=== PATIENT | male | born 1960 | race African-American/Black ===

== ENCOUNTER 2024-06-02 15:06 | Inpatient (IN) | payer MEDICAID ==
[~2024-06-02] VITALS: Ht 182.9 cm; Wt 84.2 kg
[2024-06-02] MEDS: SODIUM CHLORIDE 0.9% 1,000 ML IV ONE ×2 (15:15→19:18)
[2024-06-02 16:09] LABS: BG CARBOXYHEMOGLOBIN 0.3 % (0.5-1.5); BG DEOXYHEMOGLOBIN 1.8 % (0.0-5.0); BG FRACTION INSPIRED OXYGEN 32; BG HCO3 ACT 3.1 mmol/L (21.0-28.0); BG METHEMOGLOBIN 0.3 % (0.5-1.5); BG OXYGEN SATURATION 98.2 % (94.0-98.0); BG OXYHEMOGLOBIN 97.6 % (94.0-98.0); BG PCO2 12.2 mmHg (35.0-48.0); BG PH 7.016 (7.350-7.450); BG PO2 140.6 mmHg (83.0-108.0); BG SAMPLE SITE RIGHT BRACHIAL; BG VENT MODE NASAL CANNULA
[2024-06-02] MEDS ORDERED: INSULIN REGULAR (DRIP) 100 UNITS in SODIUM CHLORIDE 0.9% 99 ML IV SCH (16:15)
[2024-06-02 19:31] LABS: HEMATOCRIT. 47.5 % (42.0-52.0); HEMOGLOBIN. 13.6 g/dL (14.0-18.0); MEAN CORPUSCULAR HEMOGLOBIN 29.3 pg (28.0-32.0); MEAN CORPUSCULAR HGB CONC 28.6 g/dL (31.0-37.0); MEAN CORPUSCULAR VOLUME 102.4 fL (80.0-94.0); MEAN PLATELET VOLUME 9.6 fl (7.4-10.4); PLATELET 235 x1000/uL (130-400); RED BLOOD CELL COUNT 4.64 mill/uL (4.7-6.1); RED CELL DISTRIBUTION WIDTH 14.9 % (11.6-14.6); WHITE BLOOD COUNT 16.7 x1000/uL (4.5-11.0)
[2024-06-02 19:33] LABS: DIFFERENTIAL COMMENT 1
[2024-06-02 19:33] LABS: *AMPHETAMINES SCREEN URINE NEGATIVE (NEGATIVE); *BARBITURATES SCREEN URINE NEGATIVE (NEGATIVE); *BENZODIAZEPINES SCREEN URINE NEGATIVE (NEGATIVE); *COCAINE SCREEN URINE PRESUMPTIVE POSITIVE (NEGATIVE); CANNABINOID URINE SCREEN NEGATIVE (NEGATIVE); ECSTASY MDMA SCREEN URINE NEGATIVE (NEGATIVE); METHADONE URINE SCREEN NEGATIVE (NEGATIVE); OPIATES URINE SCREEN NEGATIVE (NEGATIVE); PHENCYCLIDINE URINE SCREEN NEGATIVE (NEGATIVE)
[2024-06-02 19:37] LABS: GLUCOSE URINE 3+ (NEGATIVE); KETONES URINE 3+ (NEGATIVE)
[2024-06-02 19:38] LABS: CHLORIDE 109 mEq/L (98-107); POTASSIUM 3.9 mEq/L (3.5-5.1); SODIUM 146 mEq/L (136-145)
[2024-06-02 19:44] LABS: CREATININE 2.6 mg/dL (0.6-1.3)
[2024-06-02 19:45] LABS: TROPONIN I HIGH SENSITIVITY 39 ng/L (3.0-53); UREA NITROGEN BLOOD 61 mg/dL (9-23)
[2024-06-02 19:49] LABS: ETHANOL BLOOD < 10 mg/dL (<10)
[2024-06-02 19:54] LABS: CALCIUM 9.8 mg/dL (8.7-10.4)
[2024-06-02 19:57] LABS: CLARITY URINE CLEAR (CLEAR); COLOR URINE YELLOW (YELLOW)
[2024-06-02 19:58] LABS: CARBON DIOXIDE < 10 mEq/L (21-32); GLUCOSE 957 mg/dL (70-105)
[2024-06-02 19:58] LABS: LEUKOCYTE ESTERASE URINE NEGATIVE (NEGATIVE); NITRITE URINE NEGATIVE (NEGATIVE); OCCULT BLOOD URINE 2+ (NEGATIVE); PROTEIN URINE 1+ (NEGATIVE); UROBILINOGEN URINE 0.2 E.U./dL (0.2-1.0)
[2024-06-02 19:59] LABS: BACTERIA URINE 1+; SQUAMOUS EPITHELIAL CELL URINE RARE /lpf (RARE/1+)
[2024-06-02 19:59] LABS: BETA HYDROXYBUTYRATE 13.1 mMol/L (0.0-0.3)
[2024-06-02 20:00] LABS: WBC URINE 0-2 /hpf (0-2)
[2024-06-02] MEDS: MIDAZOLAM HCL 2 MG/2 ML VIAL IV ONE (20:15)
[2024-06-02] MEDS ORDERED: MIDAZOLAM HCL 100 MG in DEXT 5% WATER 80 ML IV ONE (20:15)
[2024-06-02 20:17] VITALS: PULSE 74; RESP 29; O2SAT 100
[2024-06-02] MEDS: INSULIN REGULAR 100U/100ML PMX 100 ML IV SCH (20:17)
[2024-06-02] MEDS: SUCCINYLCHOLINE CHLORIDE 200MG/10ML IV ONE (20:18)
[2024-06-02] MEDS: ETOMIDATE 2MG/ML 10ML VIAL IV ONE (20:18)
[2024-06-02] MEDS: MIDAZOLAM 100MG/100ML PMX 100 ML IV NR (20:44)
[2024-06-02 20:49] LABS: PLATELET ESTIMATE NORMAL
[2024-06-02 20:50] LABS: ANISOCYTOSIS 1+
[2024-06-02] MEDS ORDERED: SODIUM PHOSPHATE 15 MMOL in SODIUM CHLORIDE 0.9% 245 ML IV PRN (23:00)
[2024-06-02] MEDS ORDERED: MAGNESIUM 2 G PREMIX 50 ML IV PRN (23:00)
[2024-06-02] MEDS ORDERED: POTASSIUM CHLORIDE 40 MEQ in SODIUM CHLORIDE 0.9% 230 ML IV PRN (23:00)
[2024-06-02] MEDS ORDERED: BLOOD SUGAR DIAGNOSTIC STRIP TEST PRN (23:00)
[2024-06-02] MEDS ORDERED: KCL 20MEQ/100ML PREMIX 100 ML IV PRN (23:00)
[2024-06-02] MEDS ORDERED: DEXTROSE 50% WATER 50ML SYRINGE IV PRN (23:00)
[2024-06-03] VITALS (7 sets, daily range): PULSE 80–113; RESP 20–26; O2SAT 100
[2024-06-03 00:56] LABS: BG BASE EXCESS -25.6 mmol/L (-2.0-3.0); BG CARBOXYHEMOGLOBIN 0.2 % (0.5-1.5); BG DEOXYHEMOGLOBIN 0.5 % (0.0-5.0); BG FRACTION INSPIRED OXYGEN 40; BG HCO3 ACT 4.6 mmol/L (21.0-28.0); BG METHEMOGLOBIN 0.3 % (0.5-1.5); BG OXYGEN SATURATION 99.5 % (94.0-98.0); BG PCO2 20.1 mmHg (35.0-48.0); BG PH 6.979 (7.350-7.450); BG PO2 208.1 mmHg (83.0-108.0); BG SAMPLE SITE RIGHT RADIAL; BG TOTAL HEMOGLOBIN 14.1 g/dL (13.5-17.5); BG VENT MODE VENT - AC
[2024-06-03] MEDS: BLOOD SUGAR DIAGNOSTIC STRIP TEST SCH (01:00)
[2024-06-03 02:16] LABS: CHLORIDE 116 mEq/L (98-107); SODIUM 150 mEq/L (136-145)
[2024-06-03 02:21] LABS: CREATININE 2.5 mg/dL (0.6-1.3)
[2024-06-03 02:22] LABS: UREA NITROGEN BLOOD 57 mg/dL (9-23)
[2024-06-03 02:24] LABS: PHOSPHORUS 3.4 mg/dL (2.5-4.9)
[2024-06-03 03:26] LABS: CARBON DIOXIDE < 10 mEq/L (21-32); GLUCOSE 666 mg/dL (70-105)
[2024-06-03] MEDS: SODIUM CHLORIDE 0.9% 1,000 ML IV SCH (04:54)
[2024-06-03] MEDS: DEXT 5%/0.9% NACL 1,000 ML IV SCH (05:57)
[2024-06-03 11:14] LABS: BG BASE EXCESS -11.9 mmol/L (-2.0-3.0); BG CARBOXYHEMOGLOBIN 0.8 % (0.5-1.5); BG DEOXYHEMOGLOBIN 0.5 % (0.0-5.0); BG FRACTION INSPIRED OXYGEN 40; BG HCO3 ACT 13.7 mmol/L (21.0-28.0); BG METHEMOGLOBIN 0.3 % (0.5-1.5); BG OXYGEN SATURATION 99.5 % (94.0-98.0); BG OXYHEMOGLOBIN 98.4 % (94.0-98.0); BG PCO2 30.7 mmHg (35.0-48.0); BG PH 7.266 (7.350-7.450); BG PO2 218.4 mmHg (83.0-108.0); BG SAMPLE SITE RIGHT RADIAL; BG VENT MODE VENT - AC
[2024-06-03 14:47] LABS: CHLORIDE 129 mEq/L (98-107)
[2024-06-03 14:48] LABS: CALCIUM 10.1 mg/dL (8.7-10.4); CARBON DIOXIDE 20 mEq/L (21-32)
[2024-06-03 14:53] LABS: CREATININE 2.7 mg/dL (0.6-1.3); UREA NITROGEN BLOOD 73 mg/dL (9-23)
[2024-06-03 15:40] LABS: SODIUM 162 mEq/L (136-145)
[2024-06-03 15:41] LABS: GLUCOSE 124 mg/dL (70-105); PHOSPHORUS 0.4 mg/dL (2.5-4.9); POTASSIUM 2.8 mEq/L (3.5-5.1)
[2024-06-03] MEDS: MIDAZOLAM 100MG/100ML PMX 100 ML IV PRN (15:59)
[2024-06-03] MEDS: KCL 20MEQ/100ML PREMIX 100 ML IV NR (18:40)
[2024-06-03] MEDS: POTASSIUM PHOSPHATE 30 MMOL in SODIUM CHLORIDE 0.9% 490 ML IV NR (19:12)
[2024-06-03] MEDS: FENTANYL CITRATE/PF 50MCG/ML 2ML VIAL IV PRN (21:44)
[2024-06-03] MEDS: DEXT 5%/0.45% NACL 1000ML 1,000 ML IV ONE (22:04)
[2024-06-03] MEDS: POTASSIUM PHOSPHATE 20 MMOL in SODIUM CHLORIDE 0.9% 243.3333 ML IV NR (23:59)
[2024-06-04] VITALS (80 sets, daily range): BP systolic 109–153; BP diastolic 73–97; PULSE 96–113; RESP 15–32; TEMP 36.44736–37.00296; O2SAT 91–100
[2024-06-04] MEDS: MIDAZOLAM 100MG/100ML PMX 100 ML IV PRN (00:52)
[2024-06-04 01:04] LABS: CHLORIDE 130 mEq/L (98-107); POTASSIUM 4.6 mEq/L (3.5-5.1)
[2024-06-04 01:05] LABS: CARBON DIOXIDE 15 mEq/L (21-32)
[2024-06-04 01:06] LABS: CALCIUM 8.8 mg/dL (8.7-10.4)
[2024-06-04 01:10] LABS: CREATININE 3.3 mg/dL (0.6-1.3)
[2024-06-04 01:11] LABS: UREA NITROGEN BLOOD 78 mg/dL (9-23)
[2024-06-04 01:13] LABS: PHOSPHORUS 2.3 mg/dL (2.5-4.9)
[2024-06-04 01:15] LABS: GLUCOSE 301 mg/dL (70-105)
[2024-06-04 01:16] LABS: SODIUM 160 mEq/L (136-145)
[2024-06-04] MEDS ORDERED: POTASSIUM CHLORIDE 40 MEQ in DEXTROSE 5% WATER 1,000 ML IV SCH (01:30)
[2024-06-04 05:57] LABS: CHLORIDE 132 mEq/L (98-107); POTASSIUM 4.3 mEq/L (3.5-5.1)
[2024-06-04 05:58] LABS: CALCIUM 8.9 mg/dL (8.7-10.4); CARBON DIOXIDE 16 mEq/L (21-32)
[2024-06-04 06:03] LABS: CREATININE 3.7 mg/dL (0.6-1.3); UREA NITROGEN BLOOD 86 mg/dL (9-23)
[2024-06-04 06:04] LABS: HEMATOCRIT. 40.2 % (42.0-52.0); HEMOGLOBIN. 12.6 g/dL (14.0-18.0); MEAN CORPUSCULAR HEMOGLOBIN 29.2 pg (28.0-32.0); MEAN CORPUSCULAR HGB CONC 31.2 g/dL (31.0-37.0); MEAN CORPUSCULAR VOLUME 93.3 fL (80.0-94.0); MEAN PLATELET VOLUME 8.7 fl (7.4-10.4); PLATELET 113 x1000/uL (130-400); RED BLOOD CELL COUNT 4.31 mill/uL (4.7-6.1); RED CELL DISTRIBUTION WIDTH 13.6 % (11.6-14.6); WHITE BLOOD COUNT 15.3 x1000/uL (4.5-11.0)
[2024-06-04 06:06] LABS: PHOSPHORUS 1.9 mg/dL (2.5-4.9)
[2024-06-04] MEDS: DEXT 5%/0.45% NACL 1000ML 1,000 ML IV SCH (06:24)
[2024-06-04 06:32] LABS: GLUCOSE 137 mg/dL (70-105)
[2024-06-04 06:33] LABS: SODIUM 164 mEq/L (136-145)
[2024-06-04] MEDS: KCL 20MEQ/100ML PREMIX 100 ML IV NR (07:52)
[2024-06-04 09:21] LABS: DIFFERENTIAL COMMENT 1
[2024-06-04] MEDS ORDERED: DEXTROSE 5% WATER 1,000 ML IV SCH (09:30)
[2024-06-04] MEDS ORDERED: DEXT 5%/0.9% NACL 1,000 ML IV SCH (09:45)
[2024-06-04] MEDS ORDERED: KCL 20MEQ/100ML PREMIX 100 ML IV PRN (09:45)
[2024-06-04] MEDS ORDERED: POTASSIUM CHLORIDE 40 MEQ in SODIUM CHLORIDE 0.9% 230 ML IV PRN (09:45)
[2024-06-04] MEDS ORDERED: BLOOD SUGAR DIAGNOSTIC STRIP TEST PRN (09:45)
[2024-06-04] MEDS ORDERED: SODIUM PHOSPHATE 15 MMOL in SODIUM CHLORIDE 0.9% 245 ML IV PRN (09:45)
[2024-06-04] MEDS ORDERED: DEXTROSE 50% WATER 50ML SYRINGE IV PRN (09:45)
[2024-06-04] MEDS: SODIUM CHLORIDE 0.9% 1,000 ML IV SCH (09:55)
[2024-06-04] MEDS: BLOOD SUGAR DIAGNOSTIC STRIP TEST SCH (09:55)
[2024-06-04] MEDS ORDERED: POTASSIUM PHOSPHATE 30 MMOL in SODIUM CHLORIDE 0.9% 490 ML IV NR (10:30)
[2024-06-04 10:33] LABS: BG BASE EXCESS -12.5 mmol/L (-2.0-3.0); BG CARBOXYHEMOGLOBIN 0.8 % (0.5-1.5); BG DEOXYHEMOGLOBIN 0.7 % (0.0-5.0); BG FRACTION INSPIRED OXYGEN 40; BG HCO3 ACT 13.6 mmol/L (21.0-28.0); BG OXYGEN SATURATION 99.3 % (94.0-98.0); BG OXYHEMOGLOBIN 98.5 % (94.0-98.0); BG PCO2 32.1 mmHg (35.0-48.0); BG PH 7.246 (7.350-7.450); BG PO2 205.3 mmHg (83.0-108.0); BG SAMPLE SITE RIGHT RADIAL; BG TOTAL HEMOGLOBIN 11.6 g/dL (13.5-17.5); BG VENT MODE VENT - AC
[2024-06-04] MEDS: SODIUM BICARBONATE 8.4% 50MEQ/50ML SYR IV NR (11:05)
[2024-06-04] MEDS: INSULIN REGULAR 100U/100ML PMX 100 ML IV SCH (11:08)
[2024-06-04] MEDS ORDERED: INSULIN REGULAR 100U/100ML PMX 100 ML IV SCH (11:43)
[2024-06-04] MEDS: WATER IV SCH (11:56)
[2024-06-04] MEDS: DEXTROSE 5% IV SCH (11:56)
[2024-06-04] MEDS: POTASSIUM PHOSPHATE 15 MMOL in DEXT 5% WATER 245 ML IV NR ×2 (12:10→16:52)
[2024-06-04] MEDS: DEXT 5%/LACTATED RINGERS 1,000 ML IV SCH (14:31)
[2024-06-04 17:37] LABS: POTASSIUM 4.2 mEq/L (3.5-5.1)
[2024-06-04 17:38] LABS: CALCIUM 8.4 mg/dL (8.7-10.4)
[2024-06-04 17:43] LABS: CREATININE 4.4 mg/dL (0.6-1.3)
[2024-06-04] MEDS: IPRATROPIUM/ALBUTEROL 0.5-3(2.5)MG/3ML NEB HHN SCH (20:14)
[2024-06-04 22:14] LABS: PLATELET ESTIMATE DECREASED
[2024-06-04 23:21] LABS: POTASSIUM 4.3 mEq/L (3.5-5.1)
[2024-06-04 23:23] LABS: CALCIUM 8.2 mg/dL (8.7-10.4)
[2024-06-04 23:30] LABS: PHOSPHORUS 1.9 mg/dL (2.5-4.9)
[2024-06-05] VITALS (90 sets, daily range): BP systolic 86–144; BP diastolic 60–91; PULSE 100–120; RESP 22–51; TEMP 36.114–38.00304; O2SAT 86–100
[2024-06-05 06:09] LABS: CARBON DIOXIDE 15 mEq/L (21-32); CHLORIDE 129 mEq/L (98-107); POTASSIUM 3.8 mEq/L (3.5-5.1)
[2024-06-05 06:11] LABS: CALCIUM 8.5 mg/dL (8.7-10.4)
[2024-06-05 06:15] LABS: GLUCOSE 350 mg/dL (70-105); UREA NITROGEN BLOOD 96 mg/dL (9-23)
[2024-06-05 07:35] LABS: CREATININE 5.5 mg/dL (0.6-1.3); PHOSPHORUS 0.9 mg/dL (2.5-4.9); SODIUM 159 mEq/L (136-145)
[2024-06-05] MEDS: INSULIN REGULAR 100U/100ML PMX 100 ML IV SCH (08:24)
[2024-06-05] MEDS: PROPOFOL 10MG/ML 100ML 100 ML IV PRN (10:34)
[2024-06-05 11:07] LABS: CALCIUM 8.6 mg/dL (8.7-10.4)
[2024-06-05 11:13] LABS: BG BASE EXCESS -9.9 mmol/L (-2.0-3.0); BG CARBOXYHEMOGLOBIN 0.3 % (0.5-1.5); BG DEOXYHEMOGLOBIN 3.5 % (0.0-5.0); BG FRACTION INSPIRED OXYGEN 40; BG METHEMOGLOBIN 0.2 % (0.5-1.5); BG OXYGEN SATURATION 96.5 % (94.0-98.0); BG PCO2 24.9 mmHg (35.0-48.0); BG PH 7.368 (7.350-7.450); BG PO2 80.7 mmHg (83.0-108.0); BG SAMPLE SITE ALINE; BG TOTAL HEMOGLOBIN 10.2 g/dL (13.5-17.5); BG VENT MODE VENT - AC
[2024-06-05 11:27] LABS: CREATININE 5.9 mg/dL (0.6-1.3)
[2024-06-05] MEDS: POTASSIUM PHOSPHATE 30 MMOL in SODIUM CHLORIDE 0.9% 490 ML IV NR (11:49)
[2024-06-05 13:27] LABS: CREATINE KINASE 1134 IU/L (46-171)
[2024-06-05 13:42] LABS: HEPATITIS B SURFACE ANTIGEN NEGATIVE (Negative)
[2024-06-05 13:58] LABS: HIV 1/2 AB P24AG Negative (Negative)
[2024-06-05 14:03] LABS: HEPATITIS A AB IGM NEGATIVE (Negative); HEPATITIS B CORE AB IGM NEGATIVE (Negative)
[2024-06-05 14:04] LABS: HEPATITIS C AB NON REACTIVE (Neg) (Negative)
[2024-06-05] MEDS: PANTOPRAZOLE SODIUM 40 MG/VIAL IV SCH (15:15)
[2024-06-05] MEDS: ENOXAPARIN 30MG/0.3ML SYR SUBCUT SCH (18:22)
[2024-06-05] MEDS ORDERED: ACETAMINOPHEN 650MG/20.3ML UDC PO NR (19:00)
[2024-06-05] MEDS ORDERED: ACETAMINOPHEN 650MG/20.3ML UDC PO PRN (22:30)
[2024-06-05 22:57] LABS: CHLORIDE 126 mEq/L (98-107); POTASSIUM 4.8 mEq/L (3.5-5.1)
[2024-06-05 22:58] LABS: CALCIUM 8.1 mg/dL (8.7-10.4); CARBON DIOXIDE 14 mEq/L (21-32)
[2024-06-05 23:03] LABS: GLUCOSE 333 mg/dL (70-105); UREA NITROGEN BLOOD 94 mg/dL (9-23)
[2024-06-05 23:05] LABS: PHOSPHORUS 3.1 mg/dL (2.5-4.9)
[2024-06-05 23:07] LABS: CREATININE 6.7 mg/dL (0.6-1.3); SODIUM 156 mEq/L (136-145)
[2024-06-05] MEDS: MAGNESIUM 2 G PREMIX 50 ML IV PRN (23:44)
[2024-06-05] MEDS: FENTANYL 2500MCG/250ML PMX 250 ML IV PRN (23:54)
[2024-06-06] VITALS (106 sets, daily range): BP systolic 69–134; BP diastolic 50–103; PULSE 95–126; RESP 13–43; TEMP 37.2252–37.72524; O2SAT 75–100
[2024-06-06 02:51] LABS: HEMATOCRIT 27.7 % (42.0-52.0); HEMOGLOBIN 8.9 g/dL (14.0-18.0); MEAN CORPUSCULAR HEMOGLOBIN 29.8 pg (28.0-32.0); MEAN CORPUSCULAR HGB CONC 32.1 g/dL (31.0-37.0); MEAN CORPUSCULAR VOLUME 92.8 fL (80.0-94.0); PLATELET 75 x1000/uL (130-400); RED BLOOD CELL COUNT 2.98 mill/uL (4.7-6.1); RED CELL DISTRIBUTION WIDTH 14.2 % (11.6-14.6)
[2024-06-06 02:55] LABS: CHLORIDE 130 mEq/L (98-107)
[2024-06-06 02:56] LABS: CARBON DIOXIDE 16 mEq/L (21-32); POTASSIUM 4.6 mEq/L (3.5-5.1)
[2024-06-06 02:57] LABS: CALCIUM 7.9 mg/dL (8.7-10.4)
[2024-06-06 03:01] LABS: GLUCOSE 188 mg/dL (70-105)
[2024-06-06 03:04] LABS: PHOSPHORUS 3.4 mg/dL (2.5-4.9)
[2024-06-06 03:40] LABS: SODIUM 160 mEq/L (136-145)
[2024-06-06 03:41] LABS: CREATININE 6.9 mg/dL (0.6-1.3); UREA NITROGEN BLOOD 111 mg/dL (9-23)
[2024-06-06] MEDS: PHENYLEPHRINE 50MG/250ML PMX 250 ML IV PRN (05:50)
[2024-06-06 06:44] LABS: POTASSIUM 4.8 mEq/L (3.5-5.1)
[2024-06-06 06:45] LABS: CALCIUM 7.7 mg/dL (8.7-10.4)
[2024-06-06 07:12] LABS: CREATININE 6.9 mg/dL (0.6-1.3)
[2024-06-06 07:54] LABS: PHOSPHORUS 3.2 mg/dL (2.5-4.9)
[2024-06-06 11:18] LABS: BG BASE EXCESS -14.2 mmol/L (-2.0-3.0); BG CARBOXYHEMOGLOBIN 1.2 % (0.5-1.5); BG DEOXYHEMOGLOBIN 10.8 % (0.0-5.0); BG FRACTION INSPIRED OXYGEN 60; BG HCO3 ACT 12.8 mmol/L (21.0-28.0); BG METHEMOGLOBIN 1.4 % (0.5-1.5); BG OXYGEN SATURATION 88.9 % (94.0-98.0); BG OXYHEMOGLOBIN 86.6 % (94.0-98.0); BG PCO2 34.4 mmHg (35.0-48.0); BG PO2 57.3 mmHg (83.0-108.0); BG SAMPLE SITE RIGHT RADIAL; BG TOTAL HEMOGLOBIN 8.8 g/dL (13.5-17.5); BG VENT MODE VENT - AC
[2024-06-06 11:48] LABS: CARBON DIOXIDE 16 mEq/L (21-32); CHLORIDE 128 mEq/L (98-107); POTASSIUM 5.4 mEq/L (3.5-5.1)
[2024-06-06 11:49] LABS: CALCIUM 7.8 mg/dL (8.7-10.4)
[2024-06-06 11:54] LABS: GLUCOSE 279 mg/dL (70-105)
[2024-06-06 11:56] LABS: PHOSPHORUS 3.3 mg/dL (2.5-4.9)
[2024-06-06] MEDS: SODIUM CHLORIDE 0.45% 1,000 ML IV SCH (12:11)
[2024-06-06 12:29] LABS: CREATININE 7.5 mg/dL (0.6-1.3); UREA NITROGEN BLOOD 111 mg/dL (9-23)
[2024-06-06 12:30] LABS: SODIUM 156 mEq/L (136-145)
[2024-06-06] MEDS: VANCOMYCIN 1.5GM PMX (XELLIA) 300 ML IV SCH (14:31)
[2024-06-06] MEDS: PIPERACILLIN/TAZO 3.375G/100ML 100 ML IV SCH (14:32)
[2024-06-06] MEDS: FENTANYL CITRATE 2,500 MCG in SODIUM CHLORIDE 0.9% 200 ML IV PRN (18:17)
[2024-06-06 18:20] LABS: BG BASE EXCESS -13.8 mmol/L (-2.0-3.0); BG CARBOXYHEMOGLOBIN 0.5 % (0.5-1.5); BG DEOXYHEMOGLOBIN 6.6 % (0.0-5.0); BG FRACTION INSPIRED OXYGEN 80; BG HCO3 ACT 13.7 mmol/L (21.0-28.0); BG METHEMOGLOBIN 1.8 % (0.5-1.5); BG OXYGEN SATURATION 93.2 % (94.0-98.0); BG OXYHEMOGLOBIN 91.1 % (94.0-98.0); BG PCO2 38.7 mmHg (35.0-48.0); BG PH 7.167 (7.350-7.450); BG PO2 70.2 mmHg (83.0-108.0); BG SAMPLE SITE RIGHT RADIAL; BG TOTAL HEMOGLOBIN 8.1 g/dL (13.5-17.5); BG VENT MODE VENT - P/C
[2024-06-06] MEDS ORDERED: PHENYLEPHRINE 100 MG in DEXT 5% WATER 240 ML IV PRN (19:30)
[2024-06-06] MEDS: SODIUM BICARBONATE 150 MEQ in DEXTROSE 5% WATER 850 ML IV SCH (21:20)
[2024-06-06 21:24] LABS: HEMOGLOBIN 9.7 g/dL (14.0-18.0)
[2024-06-06 21:57] LABS: CALCIUM 7.7 mg/dL (8.7-10.4)
[2024-06-06] MEDS: BLOOD SUGAR DIAGNOSTIC STRIP TEST SCH (22:00)
[2024-06-06 22:36] LABS: CREATININE 7.8 mg/dL (0.6-1.3); POTASSIUM 6.7 mEq/L (3.5-5.1)
[2024-06-06] MEDS: PHENYLEPHRINE 50MG/250ML PMX IV PRN (22:48)
[2024-06-06] MEDS: SODIUM BICARBONATE 8.4% 50MEQ/50ML SYR IV NR (23:42)
[2024-06-06] MEDS: CALCIUM CHLORIDE 1GM/10ML SYR IV NR (23:42)
[2024-06-06] MEDS: SODIUM ZIRCONIUM CYCLOSILICATE 10GM/PACKET PO NR (23:43)
[2024-06-06] MEDS: DEXTROSE 50% WATER 50ML SYRINGE IV NR (23:52)
[2024-06-06] MEDS: INSULIN REGULAR (HUMULIN R) 1000UNITS/10ML VIAL IV NR (23:53)
[2024-06-06] MEDS: VASOPRESSIN 20 UNIT in SODIUM CHLORIDE 0.9% 99 ML IV PRN (23:58)
[2024-06-07] VITALS (107 sets, daily range): BP systolic 73–123; BP diastolic 49–101; PULSE 89–110; RESP 14–41; TEMP 36.83628–37.39188; O2SAT 87–100
[2024-06-07] MEDS: VANCOMYCIN 500MG PREMIX 100 ML IV SCH (10:06)
[2024-06-07 12:11] LABS: BG BASE EXCESS -12.7 mmol/L (-2.0-3.0); BG CARBOXYHEMOGLOBIN 1.4 % (0.5-1.5); BG DEOXYHEMOGLOBIN 0.6 % (0.0-5.0); BG FRACTION INSPIRED OXYGEN 80; BG HCO3 ACT 13.3 mmol/L (21.0-28.0); BG METHEMOGLOBIN 1.3 % (0.5-1.5); BG OXYGEN SATURATION 99.4 % (94.0-98.0); BG OXYHEMOGLOBIN 96.7 % (94.0-98.0); BG PCO2 30.9 mmHg (35.0-48.0); BG PH 7.252 (7.350-7.450); BG PO2 137.5 mmHg (83.0-108.0); BG SAMPLE SITE RIGHT RADIAL; BG TOTAL HEMOGLOBIN 6.1 g/dL (13.5-17.5); BG TOTAL RESPIRATORY RATE 31 b/min; BG VENT MODE VENT - P/C
[2024-06-07 13:27] LABS: CHLORIDE 118 mEq/L (98-107); POTASSIUM 5.8 mEq/L (3.5-5.1); SODIUM 152 mEq/L (136-145)
[2024-06-07 13:28] LABS: CALCIUM 7.6 mg/dL (8.7-10.4); CARBON DIOXIDE 15 mEq/L (21-32)
[2024-06-07 13:31] LABS: INR 1.1; PARTIAL THROMBOPLASTIN TIME 31.2 sec (23.4-31.0); PROTHROMBIN TIME 11.8 sec (9.6-11.0)
[2024-06-07 13:33] LABS: GLUCOSE 255 mg/dL (70-105)
[2024-06-07 13:35] LABS: PHOSPHORUS 5.5 mg/dL (2.5-4.9)
[2024-06-07 13:41] LABS: CREATININE 8.3 mg/dL (0.6-1.3); UREA NITROGEN BLOOD 137 mg/dL (9-23)
[2024-06-07 13:44] LABS: HEMATOCRIT 21.3 % (42.0-52.0); MEAN CORPUSCULAR HEMOGLOBIN 29.5 pg (28.0-32.0); MEAN CORPUSCULAR HGB CONC 30.1 g/dL (31.0-37.0); MEAN CORPUSCULAR VOLUME 98.2 fL (80.0-94.0); PLATELET 88 x1000/uL (130-400); RED BLOOD CELL COUNT 2.17 mill/uL (4.7-6.1); RED CELL DISTRIBUTION WIDTH 15.8 % (11.6-14.6); WHITE BLOOD COUNT 19.9 x1000/uL (4.5-11.0)
[2024-06-07 14:05] LABS: HEMOGLOBIN 6.4 g/dL (14.0-18.0)
[2024-06-07] MEDS ORDERED: INSULIN REGULAR (DRIP) 100 UNITS in SODIUM CHLORIDE 0.9% 99 ML IV SCH (16:00)
[2024-06-08] VITALS (92 sets, daily range): BP systolic 98–141; BP diastolic 53–81; PULSE 80–106; RESP 22–44; TEMP 36.61404–37.16964; O2SAT 100
[2024-06-08] MEDS ORDERED: POTASSIUM CHLORIDE 40 MEQ in SODIUM CHLORIDE 0.9% 230 ML IV PRN (08:45)
[2024-06-08] MEDS ORDERED: KCL 20MEQ/100ML PREMIX 100 ML IV PRN (08:45)
[2024-06-08 08:55] LABS: MEAN CORPUSCULAR HEMOGLOBIN 29.2 pg (28.0-32.0); MEAN CORPUSCULAR HGB CONC 31.7 g/dL (31.0-37.0); MEAN CORPUSCULAR VOLUME 92.3 fL (80.0-94.0); PLATELET 97 x1000/uL (130-400); RED CELL DISTRIBUTION WIDTH 15.9 % (11.6-14.6); WHITE BLOOD COUNT 21.6 x1000/uL (4.5-11.0)
[2024-06-08] MEDS: SODIUM CHLORIDE 0.45% 1,000 ML IV SCH (08:58)
[2024-06-08 09:00] LABS: HEMATOCRIT 20.3 % (42.0-52.0); HEMOGLOBIN 6.4 g/dL (14.0-18.0)
[2024-06-08] MEDS ORDERED: SODIUM PHOSPHATE 15 MMOL in SODIUM CHLORIDE 0.9% 245 ML IV PRN (09:00)
[2024-06-08 09:03] LABS: CHLORIDE 116 mEq/L (98-107); POTASSIUM 4.6 mEq/L (3.5-5.1); SODIUM 148 mEq/L (136-145)
[2024-06-08 09:04] LABS: CALCIUM 7.7 mg/dL (8.7-10.4); CARBON DIOXIDE 17 mEq/L (21-32)
[2024-06-08 09:09] LABS: GLUCOSE 314 mg/dL (70-105)
[2024-06-08 09:22] LABS: CREATININE 6.4 mg/dL (0.6-1.3); UREA NITROGEN BLOOD 101 mg/dL (9-23)
[2024-06-08 10:39] LABS: POTASSIUM 4.1 mEq/L (3.5-5.1)
[2024-06-08 10:40] LABS: CALCIUM 7.7 mg/dL (8.7-10.4)
[2024-06-08 10:57] LABS: CREATININE 6.3 mg/dL (0.6-1.3)
[2024-06-08 11:24] LABS: BG BASE EXCESS -6.9 mmol/L (-2.0-3.0); BG CARBOXYHEMOGLOBIN 2.1 % (0.5-1.5); BG DEOXYHEMOGLOBIN 8.6 % (0.0-5.0); BG FRACTION INSPIRED OXYGEN 50; BG METHEMOGLOBIN 0.9 % (0.5-1.5); BG OXYGEN SATURATION 91.1 % (94.0-98.0); BG OXYHEMOGLOBIN 88.4 % (94.0-98.0); BG PCO2 40.1 mmHg (35.0-48.0); BG PH 7.293 (7.350-7.450); BG PO2 60.9 mmHg (83.0-108.0); BG SAMPLE SITE RIGHT RADIAL; BG TOTAL HEMOGLOBIN 6.5 g/dL (13.5-17.5); BG VENT MODE VENT - AC/PC
[2024-06-08 12:40] LABS: HEMATOCRIT 23.3 % (42.0-52.0); HEMOGLOBIN 7.6 g/dL (14.0-18.0)
[2024-06-08 12:42] LABS: CHLORIDE 115 mEq/L (98-107); POTASSIUM 4.1 mEq/L (3.5-5.1); SODIUM 149 mEq/L (136-145)
[2024-06-08 12:43] LABS: CARBON DIOXIDE 19 mEq/L (21-32)
[2024-06-08 12:50] LABS: PHOSPHORUS 4.9 mg/dL (2.5-4.9)
[2024-06-08] MEDS ORDERED: FENTANYL 2500MCG/250ML PMX 250 ML IV PRN (14:00)
[2024-06-08 17:00] LABS: CHLORIDE 113 mEq/L (98-107); POTASSIUM 4.6 mEq/L (3.5-5.1); SODIUM 147 mEq/L (136-145)
[2024-06-08 17:01] LABS: CARBON DIOXIDE 18 mEq/L (21-32)
[2024-06-08 17:08] LABS: PHOSPHORUS 5.3 mg/dL (2.5-4.9)
[2024-06-08] MEDS: MAGNESIUM 2 G PREMIX 50 ML IV PRN (17:30)
[2024-06-08] MEDS: ACETYLCYSTEINE 200MG/ML 20% VIAL 4ML INH SCH (20:17)
[2024-06-08] MEDS: PANTOPRAZOLE SODIUM 40 MG/VIAL IV SCH (20:52)
[2024-06-08] MEDS: SUCRALFATE 1G TABLET NG SCH (20:52)
[2024-06-08 21:04] LABS: CHLORIDE 111 mEq/L (98-107); POTASSIUM 4.5 mEq/L (3.5-5.1); SODIUM 146 mEq/L (136-145)
[2024-06-08 21:05] LABS: CARBON DIOXIDE 23 mEq/L (21-32)
[2024-06-09] VITALS (85 sets, daily range): BP systolic 101–144; BP diastolic 60–79; PULSE 84–118; RESP 20–49; TEMP 36.22512–37.00296; O2SAT 96–100
[2024-06-09 06:48] LABS: HEMATOCRIT. 21.9 % (42.0-52.0); HEMOGLOBIN. 7.1 g/dL (14.0-18.0); MEAN CORPUSCULAR HEMOGLOBIN 29.6 pg (28.0-32.0); MEAN CORPUSCULAR HGB CONC 32.5 g/dL (31.0-37.0); MEAN CORPUSCULAR VOLUME 90.9 fL (80.0-94.0); MEAN PLATELET VOLUME 9.8 fl (7.4-10.4); PLATELET 78 x1000/uL (130-400); RED BLOOD CELL COUNT 2.41 mill/uL (4.7-6.1); RED CELL DISTRIBUTION WIDTH 15.6 % (11.6-14.6); WHITE BLOOD COUNT 13.1 x1000/uL (4.5-11.0)
[2024-06-09 06:55] LABS: CARBON DIOXIDE 22 mEq/L (21-32); CHLORIDE 112 mEq/L (98-107); SODIUM 148 mEq/L (136-145)
[2024-06-09 07:00] LABS: GLUCOSE 153 mg/dL (70-105); IRON 79 ug/dL (65-175)
[2024-06-09 07:01] LABS: PROTEIN TOTAL 5.4 g/dL (6.0-8.3)
[2024-06-09 07:02] LABS: ALANINE AMINOTRANSFERASE 42 IU/L (10-49); ALBUMIN 2.7 g/dL (3.2-4.8); ASPARTATE AMINOTRANSFERASE 83 IU/L (<34)
[2024-06-09 07:03] LABS: BILIRUBIN TOTAL 1.1 mg/dL (0.1-1.0)
[2024-06-09 07:33] LABS: DIFFERENTIAL COMMENT 1
[2024-06-09 07:40] LABS: CREATININE 6.5 mg/dL (0.6-1.3); TOTAL IRON BINDING CAPACITY > 670 ug/dl (250-425); UREA NITROGEN BLOOD 109 mg/dL (9-23)
[2024-06-09 07:52] LABS: FERRITIN > 1650 ng/mL (22-322)
[2024-06-09 07:53] LABS: FOLIC ACID (FOLATE) SERUM 8.29 ng/mL (>5.38)
[2024-06-09 09:16] LABS: VITAMIN B12 SERUM > 2000 pg/mL (211-911)
[2024-06-09 11:08] LABS: HEMATOCRIT. 21.9 % (42.0-52.0); HEMOGLOBIN. 7.1 g/dL (14.0-18.0); MEAN CORPUSCULAR HEMOGLOBIN 29.8 pg (28.0-32.0); MEAN CORPUSCULAR HGB CONC 32.5 g/dL (31.0-37.0); MEAN CORPUSCULAR VOLUME 91.6 fL (80.0-94.0); MEAN PLATELET VOLUME 9.7 fl (7.4-10.4); PLATELET 81 x1000/uL (130-400); RED BLOOD CELL COUNT 2.39 mill/uL (4.7-6.1); RED CELL DISTRIBUTION WIDTH 15.8 % (11.6-14.6); WHITE BLOOD COUNT 14.6 x1000/uL (4.5-11.0)
[2024-06-09 11:11] LABS: POTASSIUM 4.1 mEq/L (3.5-5.1)
[2024-06-09 11:12] LABS: CALCIUM 7.8 mg/dL (8.7-10.4)
[2024-06-09 11:13] LABS: DIFFERENTIAL COMMENT 1
[2024-06-09] MEDS: FENTANYL CITRATE 2,500 MCG in SODIUM CHLORIDE 0.9% 200 ML IV PRN (11:21)
[2024-06-09 11:26] LABS: BG BASE EXCESS -4.8 mmol/L (-2.0-3.0); BG CARBOXYHEMOGLOBIN 1.7 % (0.5-1.5); BG DEOXYHEMOGLOBIN 0.3 % (0.0-5.0); BG FRACTION INSPIRED OXYGEN 60; BG HCO3 ACT 22.8 mmol/L (21.0-28.0); BG METHEMOGLOBIN 0.3 % (0.5-1.5); BG OXYGEN SATURATION 99.7 % (94.0-98.0); BG OXYHEMOGLOBIN 97.7 % (94.0-98.0); BG PCO2 57.8 mmHg (35.0-48.0); BG PH 7.213 (7.350-7.450); BG PO2 165.4 mmHg (83.0-108.0); BG SAMPLE SITE RIGHT RADIAL; BG TOTAL HEMOGLOBIN 6.9 g/dL (13.5-17.5); BG VENT MODE VENT - AC/PC
[2024-06-09 11:29] LABS: NUCLEATED RED BLOOD CELLS 1 /100 WBC
[2024-06-09 11:31] LABS: PLATELET ESTIMATE DECREASED
[2024-06-09 12:05] LABS: CREATININE 6.8 mg/dL (0.6-1.3)
[2024-06-09 13:22] LABS: NUCLEATED RED BLOOD CELLS 3 /100 WBC; PLATELET ESTIMATE DECREASED
[2024-06-09 13:23] LABS: ANISOCYTOSIS 1+
[2024-06-09] MEDS ORDERED: DEXTROSE 50% WATER 50ML SYRINGE IV PRN (13:30)
[2024-06-09] MEDS: METHYLPREDNISOLONE SOD SUCC 40MG/ML (ACT-O-VIAL) IV SCH (15:01)
[2024-06-09] MEDS: BLOOD SUGAR DIAGNOSTIC STRIP TEST SCH (16:04)
[2024-06-09] MEDS: INSULIN LISPRO 100 UNITS/ML SUBCUT SCH (16:07)
[2024-06-09] MEDS: VANCOMYCIN 1GM PMX (XELLIA) 200 ML IV SCH (21:35)
[2024-06-10] VITALS (88 sets, daily range): BP systolic 91–129; BP diastolic 47–83; PULSE 76–116; RESP 25–47; TEMP 36.3918–38.28084; O2SAT 97–100
[2024-06-10] MEDS: MIDAZOLAM 100MG/100ML PMX 100 ML IV PRN (05:22)
[2024-06-10 06:06] LABS: POTASSIUM 5.5 mEq/L (3.5-5.1)
[2024-06-10 06:08] LABS: CALCIUM 8.3 mg/dL (8.7-10.4); HEMATOCRIT. 23.5 % (42.0-52.0); HEMOGLOBIN. 7.4 g/dL (14.0-18.0); MEAN CORPUSCULAR HEMOGLOBIN 29.9 pg (28.0-32.0); MEAN CORPUSCULAR HGB CONC 31.4 g/dL (31.0-37.0); MEAN CORPUSCULAR VOLUME 95.1 fL (80.0-94.0); PLATELET 110 x1000/uL (130-400); RED BLOOD CELL COUNT 2.47 mill/uL (4.7-6.1); RED CELL DISTRIBUTION WIDTH 16.3 % (11.6-14.6); WHITE BLOOD COUNT 18.5 x1000/uL (4.5-11.0)
[2024-06-10 06:15] LABS: CREATININE 6.7 mg/dL (0.6-1.3)
[2024-06-10] MEDS: ACETAMINOPHEN 650MG/20.3ML UDC PO PRN (06:23)
[2024-06-10 07:30] LABS: DIFFERENTIAL COMMENT 1
[2024-06-10 09:27] LABS: BG BASE EXCESS -9.1 mmol/L (-2.0-3.0); BG CARBOXYHEMOGLOBIN 1.4 % (0.5-1.5); BG FRACTION INSPIRED OXYGEN 40; BG HCO3 ACT 22.4 mmol/L (21.0-28.0); BG METHEMOGLOBIN 0.1 % (0.5-1.5); BG OXYGEN SATURATION 92.9 % (94.0-98.0); BG OXYHEMOGLOBIN 91.5 % (94.0-98.0); BG PH 6.952 (7.350-7.450); BG PO2 73.4 mmHg (83.0-108.0); BG SAMPLE SITE RIGHT RADIAL; BG TOTAL HEMOGLOBIN 6.6 g/dL (13.5-17.5); BG VENT MODE VENT - AC/PC
[2024-06-10] MEDS: PROPOFOL 10MG/ML 100ML 100 ML IV PRN (09:59)
[2024-06-10] MEDS: SODIUM ZIRCONIUM CYCLOSILICATE 10GM/PACKET PO NR (10:07)
[2024-06-10 15:07] LABS: BG BASE EXCESS -7.4 mmol/L (-2.0-3.0); BG CARBOXYHEMOGLOBIN 1.3 % (0.5-1.5); BG DEOXYHEMOGLOBIN 0.5 % (0.0-5.0); BG FRACTION INSPIRED OXYGEN 60; BG HCO3 ACT 21.6 mmol/L (21.0-28.0); BG METHEMOGLOBIN 0.2 % (0.5-1.5); BG OXYGEN SATURATION 99.5 % (94.0-98.0); BG PCO2 67.7 mmHg (35.0-48.0); BG PH 7.121 (7.350-7.450); BG PO2 160.8 mmHg (83.0-108.0); BG SAMPLE SITE RIGHT RADIAL; BG VENT MODE VENT - AC/PC
[2024-06-10 16:10] LABS: PLATELET ESTIMATE NORMAL
[2024-06-10] MEDS: MICAFUNGIN 100 MG in SODIUM CHLORIDE 0.9% 100 ML IV SCH (16:45)
[2024-06-10] MEDS: IPRATROPIUM/ALBUTEROL 0.5-3(2.5)MG/3ML NEB HHN SCH (18:00)
[2024-06-11] VITALS (82 sets, daily range): BP systolic 103–149; BP diastolic 61–90; PULSE 78–115; RESP 20–45; TEMP 36.3918–37.2252; O2SAT 97–100
[2024-06-11 06:22] LABS: MEAN CORPUSCULAR HEMOGLOBIN 29.4 pg (28.0-32.0); MEAN CORPUSCULAR HGB CONC 31.7 g/dL (31.0-37.0); MEAN CORPUSCULAR VOLUME 92.8 fL (80.0-94.0); MEAN PLATELET VOLUME 9.8 fl (7.4-10.4); PLATELET 96 x1000/uL (130-400); RED BLOOD CELL COUNT 2.12 mill/uL (4.7-6.1); RED CELL DISTRIBUTION WIDTH 15.7 % (11.6-14.6)
[2024-06-11 06:53] LABS: POTASSIUM 4.5 mEq/L (3.5-5.1)
[2024-06-11 06:54] LABS: CALCIUM 8.1 mg/dL (8.7-10.4)
[2024-06-11 07:35] LABS: DIFFERENTIAL COMMENT 1
[2024-06-11 07:38] LABS: HEMOGLOBIN. 6.2 g/dL (14.0-18.0)
[2024-06-11 07:39] LABS: HEMATOCRIT. 19.6 % (42.0-52.0)
[2024-06-11 09:42] LABS: CREATININE 7.8 mg/dL (0.6-1.3)
[2024-06-11] MEDS: INSULIN GLARGINE 100 UNITS/ML SUBCUT SCH (12:02)
[2024-06-11 12:20] LABS: BG BASE EXCESS -0.4 mmol/L (-2.0-3.0); BG CARBOXYHEMOGLOBIN 0.8 % (0.5-1.5); BG DEOXYHEMOGLOBIN 0.3 % (0.0-5.0); BG FRACTION INSPIRED OXYGEN 50; BG HCO3 ACT 23.9 mmol/L (21.0-28.0); BG METHEMOGLOBIN 0.3 % (0.5-1.5); BG OXYGEN SATURATION 99.7 % (94.0-98.0); BG OXYHEMOGLOBIN 98.6 % (94.0-98.0); BG PCO2 37.2 mmHg (35.0-48.0); BG PH 7.426 (7.350-7.450); BG PO2 226.8 mmHg (83.0-108.0); BG SAMPLE SITE RIGHT RADIAL; BG TOTAL HEMOGLOBIN 6.1 g/dL (13.5-17.5); BG VENT MODE VENT - P/C
[2024-06-11] MEDS: PROPOFOL 10MG/ML 100ML 100 ML IV PRN (15:46)
[2024-06-11 20:30] LABS: ANISOCYTOSIS 2+; PLATELET ESTIMATE DECREASED
[2024-06-11 20:42] LABS: HEMATOCRIT 20.8 % (42.0-52.0); HEMOGLOBIN 6.8 g/dL (14.0-18.0)
[2024-06-12] VITALS (63 sets, daily range): BP systolic 123–176; BP diastolic 63–100; PULSE 88–110; RESP 22–46; TEMP 36.33624–37.503; O2SAT 96–100
[2024-06-12 06:51] LABS: MEAN CORPUSCULAR HEMOGLOBIN 29.9 pg (28.0-32.0); MEAN CORPUSCULAR HGB CONC 33.8 g/dL (31.0-37.0); MEAN CORPUSCULAR VOLUME 88.3 fL (80.0-94.0); MEAN PLATELET VOLUME 9.7 fl (7.4-10.4); PLATELET 104 x1000/uL (130-400); RED BLOOD CELL COUNT 2.32 mill/uL (4.7-6.1); RED CELL DISTRIBUTION WIDTH 15.1 % (11.6-14.6); WHITE BLOOD COUNT 14.6 x1000/uL (4.5-11.0)
[2024-06-12 07:30] LABS: DIFFERENTIAL COMMENT 1
[2024-06-12 07:33] LABS: HEMATOCRIT. 20.4 % (42.0-52.0); HEMOGLOBIN. 6.9 g/dL (14.0-18.0)
[2024-06-12] MEDS ORDERED: FENTANYL 2500MCG/250ML PMX 250 ML IV ONE (09:00)
[2024-06-12 09:27] LABS: BG BASE EXCESS -2.1 mmol/L (-2.0-3.0); BG CARBOXYHEMOGLOBIN 0.4 % (0.5-1.5); BG DEOXYHEMOGLOBIN 0.9 % (0.0-5.0); BG FRACTION INSPIRED OXYGEN 40; BG METHEMOGLOBIN 0.4 % (0.5-1.5); BG OXYGEN SATURATION 99.1 % (94.0-98.0); BG OXYHEMOGLOBIN 98.3 % (94.0-98.0); BG PCO2 28.8 mmHg (35.0-48.0); BG PH 7.481 (7.350-7.450); BG PO2 133.2 mmHg (83.0-108.0); BG SAMPLE SITE LEFT RADIAL; BG TOTAL HEMOGLOBIN 7.3 g/dL (13.5-17.5); BG TOTAL RESPIRATORY RATE 34 b/min; BG VENT MODE VENT - P/C
[2024-06-12] MEDS: INSULIN LISPRO 100 UNITS/ML SUBCUT SCH (09:44)
[2024-06-12] MEDS: INSULIN GLARGINE 100 UNITS/ML SUBCUT SCH (09:45)
[2024-06-12 10:12] LABS: POTASSIUM 3.3 mEq/L (3.5-5.1)
[2024-06-12 10:13] LABS: CALCIUM 8.2 mg/dL (8.7-10.4)
[2024-06-12 10:20] LABS: CREATININE 6.5 mg/dL (0.6-1.3)
[2024-06-12] MEDS: FENTANYL CITRATE 1,000 MCG in SODIUM CHLORIDE 0.9% 80 ML IV PRN (14:44)
[2024-06-12 16:57] LABS: HYPOCHROMASIA 1+; MICROCYTOSIS 1+; PLATELET ESTIMATE SLIGHTLY DECREASED
[2024-06-12 16:58] LABS: ANISOCYTOSIS 1+
[2024-06-13] VITALS (102 sets, daily range): BP systolic 90–165; BP diastolic 64–101; PULSE 76–101; RESP 14–34; TEMP 36.50292–37.05852; O2SAT 87–100
[2024-06-13 06:12] LABS: HEMATOCRIT. 22.1 % (42.0-52.0); HEMOGLOBIN. 7.3 g/dL (14.0-18.0); MEAN CORPUSCULAR HEMOGLOBIN 29.2 pg (28.0-32.0); MEAN CORPUSCULAR HGB CONC 32.9 g/dL (31.0-37.0); MEAN CORPUSCULAR VOLUME 88.8 fL (80.0-94.0); MEAN PLATELET VOLUME 9.8 fl (7.4-10.4); PLATELET 121 x1000/uL (130-400); RED BLOOD CELL COUNT 2.49 mill/uL (4.7-6.1); RED CELL DISTRIBUTION WIDTH 14.9 % (11.6-14.6); WHITE BLOOD COUNT 15.3 x1000/uL (4.5-11.0)
[2024-06-13 06:21] LABS: CARBON DIOXIDE 20 mEq/L (21-32); CHLORIDE 103 mEq/L (98-107); SODIUM 141 mEq/L (136-145)
[2024-06-13 06:22] LABS: CALCIUM 8.2 mg/dL (8.7-10.4)
[2024-06-13 06:29] LABS: PHOSPHORUS 6.1 mg/dL (2.5-4.9)
[2024-06-13 06:45] LABS: GLUCOSE 244 mg/dL (70-105)
[2024-06-13 06:46] LABS: CREATININE 7.4 mg/dL (0.6-1.3); POTASSIUM 2.8 mEq/L (3.5-5.1); UREA NITROGEN BLOOD 142 mg/dL (9-23)
[2024-06-13 08:05] LABS: DIFFERENTIAL COMMENT 1
[2024-06-13] MEDS: POTASSIUM CHLORIDE 20MEQ/PACKET NG NR (09:30)
[2024-06-13 10:39] LABS: BG CARBOXYHEMOGLOBIN 0.9 % (0.5-1.5); BG DEOXYHEMOGLOBIN 1.2 % (0.0-5.0); BG FRACTION INSPIRED OXYGEN 40; BG METHEMOGLOBIN 0.3 % (0.5-1.5); BG OXYGEN SATURATION 98.8 % (94.0-98.0); BG OXYHEMOGLOBIN 97.6 % (94.0-98.0); BG PCO2 32.1 mmHg (35.0-48.0); BG PH 7.413 (7.350-7.450); BG PO2 131.4 mmHg (83.0-108.0); BG SAMPLE SITE RIGHT BRACHIAL; BG TOTAL HEMOGLOBIN 7.7 g/dL (13.5-17.5); BG VENT MODE VENT - AC
[2024-06-13 11:38] LABS: PLATELET ESTIMATE SLIGHTLY DECREASED
[2024-06-13] MEDS: METHYLPREDNISOLONE SOD SUCC 40MG/ML (ACT-O-VIAL) IV SCH (20:40)
[2024-06-13] MEDS: PIPERACILLIN/TAZO 3.375G/100ML 100 ML IV SCH (20:48)
[2024-06-13] MEDS: GUAIFENESIN 200MG/10ML SUGAR FREE UDC PO SCH (20:52)
[2024-06-14] VITALS (100 sets, daily range): BP systolic 109–162; BP diastolic 67–98; PULSE 84–119; RESP 8–45; TEMP 36.3918–36.78072; O2SAT 100
[2024-06-14 05:51] LABS: HEMATOCRIT. 23.8 % (42.0-52.0); HEMOGLOBIN. 7.9 g/dL (14.0-18.0); MEAN CORPUSCULAR HEMOGLOBIN 29.5 pg (28.0-32.0); MEAN CORPUSCULAR HGB CONC 33.1 g/dL (31.0-37.0); MEAN PLATELET VOLUME 9.9 fl (7.4-10.4); PLATELET 160 x1000/uL (130-400); RED BLOOD CELL COUNT 2.67 mill/uL (4.7-6.1); RED CELL DISTRIBUTION WIDTH 14.7 % (11.6-14.6); WHITE BLOOD COUNT 20.5 x1000/uL (4.5-11.0)
[2024-06-14 05:57] LABS: CALCIUM 8.2 mg/dL (8.7-10.4); POTASSIUM 2.9 mEq/L (3.5-5.1)
[2024-06-14 06:00] LABS: DIFFERENTIAL COMMENT 1
[2024-06-14 06:49] LABS: CREATININE 6.4 mg/dL (0.6-1.3)
[2024-06-14] MEDS: POTASSIUM CHLORIDE 20MEQ/PACKET NG NR (08:57)
[2024-06-14 14:52] LABS: PLATELET ESTIMATE NORMAL
[2024-06-15] VITALS (85 sets, daily range): BP systolic 106–173; BP diastolic 56–102; PULSE 96–132; RESP 12–46; TEMP 36.3918–36.9474; O2SAT 10–100
[2024-06-15] MEDS: BLOOD SUGAR DIAGNOSTIC STRIP TEST SCH (00:13)
[2024-06-15] MEDS: INSULIN LISPRO 100 UNITS/ML SUBCUT SCH (00:19)
[2024-06-15 05:04] LABS: MEAN CORPUSCULAR HEMOGLOBIN 29.7 pg (28.0-32.0); MEAN CORPUSCULAR HGB CONC 33.4 g/dL (31.0-37.0); MEAN CORPUSCULAR VOLUME 89.1 fL (80.0-94.0); MEAN PLATELET VOLUME 9.8 fl (7.4-10.4); PLATELET 164 x1000/uL (130-400); RED BLOOD CELL COUNT 2.31 mill/uL (4.7-6.1); RED CELL DISTRIBUTION WIDTH 14.5 % (11.6-14.6); WHITE BLOOD COUNT 21.1 x1000/uL (4.5-11.0)
[2024-06-15 05:17] LABS: POTASSIUM 2.9 mEq/L (3.5-5.1)
[2024-06-15 05:19] LABS: CALCIUM 8.1 mg/dL (8.7-10.4)
[2024-06-15 05:27] LABS: CREATININE 7.1 mg/dL (0.6-1.3)
[2024-06-15 06:22] LABS: HEMOGLOBIN. 6.9 g/dL (14.0-18.0)
[2024-06-15 06:23] LABS: DIFFERENTIAL COMMENT 1; HEMATOCRIT. 20.5 % (42.0-52.0)
[2024-06-15 10:53] LABS: PLATELET ESTIMATE NORMAL
[2024-06-15] MEDS: HYDRALAZINE 20MG/ML VIAL IV PRN (13:28)
[2024-06-15] MEDS: PREDNISONE 10MG TABLET PO SCH (17:16)
[2024-06-16] VITALS (78 sets, daily range): BP systolic 113–177; BP diastolic 59–99; PULSE 84–124; RESP 10–32; TEMP 36.3918–36.83628; O2SAT 99–100
[2024-06-16 00:51] LABS: HEMATOCRIT 29.9 % (42.0-52.0); HEMOGLOBIN 10.1 g/dL (14.0-18.0)
[2024-06-16] MEDS ORDERED: MORPHINE SULFATE 2 MG/ML INJ (NOT FOR IM USE) IV NR (01:15)
[2024-06-16 05:37] LABS: CHLORIDE 108 mEq/L (98-107); SODIUM 145 mEq/L (136-145)
[2024-06-16 05:40] LABS: CALCIUM 8.6 mg/dL (8.7-10.4); CARBON DIOXIDE 21 mEq/L (21-32)
[2024-06-16 05:45] LABS: GLUCOSE 200 mg/dL (70-105)
[2024-06-16 05:47] LABS: ALANINE AMINOTRANSFERASE 43 IU/L (10-49); ALBUMIN 3.2 g/dL (3.2-4.8); ASPARTATE AMINOTRANSFERASE 52 IU/L (<34); BILIRUBIN DIRECT 0.1 mg/dL (<=3.0); BILIRUBIN TOTAL 0.3 mg/dL (0.1-1.0); PROTEIN TOTAL 6.2 g/dL (6.0-8.3)
[2024-06-16 05:51] LABS: CREATININE 5.6 mg/dL (0.6-1.3); POTASSIUM 2.8 mEq/L (3.5-5.1); UREA NITROGEN BLOOD 102 mg/dL (9-23)
[2024-06-16 08:32] LABS: HEMATOCRIT. 23.7 % (42.0-52.0); HEMOGLOBIN. 7.8 g/dL (14.0-18.0); MEAN CORPUSCULAR HEMOGLOBIN 29.7 pg (28.0-32.0); MEAN CORPUSCULAR HGB CONC 32.9 g/dL (31.0-37.0); MEAN CORPUSCULAR VOLUME 90.3 fL (80.0-94.0); RED BLOOD CELL COUNT 2.63 mill/uL (4.7-6.1); RED CELL DISTRIBUTION WIDTH 14.8 % (11.6-14.6); WHITE BLOOD COUNT 21.2 x1000/uL (4.5-11.0)
[2024-06-16 09:01] LABS: DIFFERENTIAL COMMENT 1
[2024-06-16] MEDS: POTASSIUM CHLORIDE 20MEQ/PACKET PO SCH (09:01)
[2024-06-16] MEDS: KCL 20MEQ/100ML PREMIX 100 ML IV SCH (09:01)
[2024-06-16 17:45] LABS: MEAN PLATELET VOLUME 10.4 fl (7.4-10.4); PLATELET 202 x1000/uL (130-400)
[2024-06-16 17:47] LABS: HYPOCHROMASIA 1+
[2024-06-16 17:49] LABS: PLATELET ESTIMATE NORMAL
[2024-06-16] MEDS: LACTOBACILLUS GG CAPSULE PO NR (18:40)
[2024-06-17] VITALS (98 sets, daily range): BP systolic 113–186; BP diastolic 63–99; PULSE 88–133; RESP 12–35; TEMP 36.22512–36.78072; O2SAT 97–100
[2024-06-17] MEDS: FENTANYL CITRATE/PF 50MCG/ML 2ML VIAL IV PRN (02:56)
[2024-06-17 05:52] LABS: HEMATOCRIT. 23.4 % (42.0-52.0); HEMOGLOBIN. 7.9 g/dL (14.0-18.0); MEAN CORPUSCULAR HEMOGLOBIN 30.3 pg (28.0-32.0); MEAN CORPUSCULAR HGB CONC 33.6 g/dL (31.0-37.0); MEAN CORPUSCULAR VOLUME 90.2 fL (80.0-94.0); MEAN PLATELET VOLUME 9.8 fl (7.4-10.4); PLATELET 209 x1000/uL (130-400); RED CELL DISTRIBUTION WIDTH 15.1 % (11.6-14.6); WHITE BLOOD COUNT 18.6 x1000/uL (4.5-11.0)
[2024-06-17 06:05] LABS: DIFFERENTIAL COMMENT 1
[2024-06-17] MEDS: LACTOBACILLUS GG CAPSULE PO SCH (08:43)
[2024-06-17] MEDS: PANTOPRAZOLE SODIUM 40 MG/VIAL IV SCH (08:43)
[2024-06-17 09:27] LABS: CARBON DIOXIDE 20 mEq/L (21-32); CHLORIDE 113 mEq/L (98-107); POTASSIUM 3.3 mEq/L (3.5-5.1); SODIUM 151 mEq/L (136-145)
[2024-06-17 09:28] LABS: CALCIUM 8.1 mg/dL (8.7-10.4)
[2024-06-17 09:33] LABS: GLUCOSE 125 mg/dL (70-105)
[2024-06-17 09:35] LABS: PHOSPHORUS 5.7 mg/dL (2.5-4.9)
[2024-06-17 10:10] LABS: CREATININE 6.2 mg/dL (0.6-1.3); UREA NITROGEN BLOOD 114 mg/dL (9-23)
[2024-06-17] MEDS: INSULIN GLARGINE 100 UNITS/ML SUBCUT SCH (10:53)
[2024-06-17 13:04] LABS: PLATELET ESTIMATE NORMAL
[2024-06-18] VITALS (86 sets, daily range): BP systolic 97–190; BP diastolic 61–102; PULSE 67–125; RESP 15–33; TEMP 37.00296–37.2252; O2SAT 98–100
[2024-06-18] MEDS: LABETALOL 5MG/ML 4ML INJ IV NR (00:21)
[2024-06-18 05:44] LABS: HEMATOCRIT. 22.4 % (42.0-52.0); HEMOGLOBIN. 7.5 g/dL (14.0-18.0); MEAN CORPUSCULAR HEMOGLOBIN 30.1 pg (28.0-32.0); MEAN CORPUSCULAR HGB CONC 33.6 g/dL (31.0-37.0); MEAN CORPUSCULAR VOLUME 89.5 fL (80.0-94.0); MEAN PLATELET VOLUME 9.3 fl (7.4-10.4); PLATELET 241 x1000/uL (130-400); RED CELL DISTRIBUTION WIDTH 14.9 % (11.6-14.6); WHITE BLOOD COUNT 14.5 x1000/uL (4.5-11.0)
[2024-06-18 05:54] LABS: CALCIUM 8.6 mg/dL (8.7-10.4); POTASSIUM 3.3 mEq/L (3.5-5.1)
[2024-06-18 06:02] LABS: CREATININE 5.3 mg/dL (0.6-1.3)
[2024-06-18 06:05] LABS: DIFFERENTIAL COMMENT 1
[2024-06-18] MEDS: POTASSIUM CHLORIDE 20MEQ TABLET SR PO NR (09:23)
[2024-06-18] MEDS: PIPERACILLIN/TAZO 3.375G/50ML IV SCH (09:43)
[2024-06-18] MEDS: INSULIN GLARGINE 100 UNITS/ML SUBCUT SCH (10:05)
[2024-06-18 18:23] LABS: PLATELET ESTIMATE NORMAL
[2024-06-19] VITALS (82 sets, daily range): BP systolic 124–202; BP diastolic 65–106; PULSE 93–126; RESP 14–29; TEMP 36.6696–37.28076; O2SAT 90–100
[2024-06-19 06:43] LABS: POTASSIUM 3.4 mEq/L (3.5-5.1)
[2024-06-19 06:44] LABS: CALCIUM 8.5 mg/dL (8.7-10.4)
[2024-06-19 06:53] LABS: CREATININE 5.5 mg/dL (0.6-1.3)
[2024-06-19] MEDS: POTASSIUM CHLORIDE 20MEQ/PACKET PO NR (10:33)
[2024-06-19 15:25] LABS: HEMATOCRIT 22.2 % (42.0-52.0); HEMOGLOBIN 7.1 g/dL (14.0-18.0)
[2024-06-20] VITALS (101 sets, daily range): BP systolic 93–178; BP diastolic 60–97; PULSE 81–117; RESP 13–24; TEMP 36.44736–37.00296; O2SAT 98–100
[2024-06-20 05:22] LABS: HEMATOCRIT. 21.4 % (42.0-52.0); MEAN CORPUSCULAR HEMOGLOBIN 29.4 pg (28.0-32.0); MEAN CORPUSCULAR HGB CONC 31.9 g/dL (31.0-37.0); MEAN PLATELET VOLUME 9.2 fl (7.4-10.4); PLATELET 257 x1000/uL (130-400); RED BLOOD CELL COUNT 2.33 mill/uL (4.7-6.1); WHITE BLOOD COUNT 12.8 x1000/uL (4.5-11.0)
[2024-06-20 05:31] LABS: POTASSIUM 3.5 mEq/L (3.5-5.1)
[2024-06-20 05:32] LABS: CALCIUM 8.6 mg/dL (8.7-10.4)
[2024-06-20] MEDS: LIDOCAINE HCL 1% 10 MG/ML 10ML VIAL ONE ×2 (05:32)
[2024-06-20 06:30] LABS: CREATININE 5.2 mg/dL (0.6-1.3)
[2024-06-20 07:04] LABS: DIFFERENTIAL COMMENT 1; HEMOGLOBIN. 6.8 g/dL (14.0-18.0)
[2024-06-20 13:19] LABS: PLATELET ESTIMATE NORMAL
[2024-06-20 16:39] LABS: HEMATOCRIT 26.2 % (42.0-52.0); HEMOGLOBIN 8.2 g/dL (14.0-18.0); MEAN CORPUSCULAR HEMOGLOBIN 28.6 pg (28.0-32.0); MEAN CORPUSCULAR HGB CONC 31.3 g/dL (31.0-37.0); MEAN CORPUSCULAR VOLUME 91.4 fL (80.0-94.0); PLATELET 277 x1000/uL (130-400); RED BLOOD CELL COUNT 2.87 mill/uL (4.7-6.1); RED CELL DISTRIBUTION WIDTH 15.6 % (11.6-14.6); WHITE BLOOD COUNT 14.7 x1000/uL (4.5-11.0)
[2024-06-21] VITALS (102 sets, daily range): BP systolic 96–192; BP diastolic 60–105; PULSE 73–133; RESP 14–32; TEMP 36.28068–37.28076; O2SAT 96–100
[2024-06-21 07:53] LABS: POTASSIUM 3.4 mEq/L (3.5-5.1)
[2024-06-21 07:54] LABS: CALCIUM 8.7 mg/dL (8.7-10.4)
[2024-06-21 08:12] LABS: CREATININE 3.6 mg/dL (0.6-1.3)
[2024-06-21 11:48] LABS: BG BASE EXCESS -1.5 mmol/L (-2.0-3.0); BG CARBOXYHEMOGLOBIN 0.1 % (0.5-1.5); BG FRACTION INSPIRED OXYGEN 40; BG HCO3 ACT 23.7 mmol/L (21.0-28.0); BG METHEMOGLOBIN 0.1 % (0.5-1.5); BG OXYHEMOGLOBIN 98.8 % (94.0-98.0); BG PCO2 41.5 mmHg (35.0-48.0); BG PH 7.374 (7.350-7.450); BG PO2 148.2 mmHg (83.0-108.0); BG SAMPLE SITE RIGHT RADIAL; BG TOTAL HEMOGLOBIN 9.1 g/dL (13.5-17.5); BG VENT MODE VENT - AC
[2024-06-21 15:31] LABS: CREATININE URINE (RAW) 88.9 mg/dl
[2024-06-22] VITALS (82 sets, daily range): BP systolic 120–165; BP diastolic 64–120; PULSE 67–122; RESP 10–27; TEMP 36.05844–37.00296; O2SAT 0–100
[2024-06-22 05:54] LABS: CALCIUM 9.1 mg/dL (8.7-10.4); POTASSIUM 3.4 mEq/L (3.5-5.1)
[2024-06-22 06:00] LABS: CREATININE 3.6 mg/dL (0.6-1.3)
[2024-06-22] MEDS: POTASSIUM CHLORIDE 20MEQ/PACKET PO NR (08:01)
[2024-06-22 17:35] LABS: HEMATOCRIT 23.7 % (42.0-52.0); HEMOGLOBIN 7.8 g/dL (14.0-18.0)
[2024-06-23] VITALS (67 sets, daily range): BP systolic 109–149; BP diastolic 60–96; PULSE 83–111; RESP 10–23; TEMP 36.33624–37.05852; O2SAT 95–100
[2024-06-23] MEDS: HYDROCODONE/ACETAMINOPHEN 5/325MG TABLET PO NR (00:52)
[2024-06-23] MEDS: FUROSEMIDE 20MG/2ML VIAL IVP NR (00:57)
[2024-06-23] MEDS: POTASSIUM CHLORIDE 20MEQ/PACKET PO NR (00:57)
[2024-06-23 05:46] LABS: CHLORIDE 114 mEq/L (98-107); POTASSIUM 3.9 mEq/L (3.5-5.1); SODIUM 151 mEq/L (136-145)
[2024-06-23 05:47] LABS: CALCIUM 8.9 mg/dL (8.7-10.4); CARBON DIOXIDE 28 mEq/L (21-32)
[2024-06-23 05:52] LABS: CREATININE 3.2 mg/dL (0.6-1.3); GLUCOSE 116 mg/dL (70-105); UREA NITROGEN BLOOD 67 mg/dL (9-23)
[2024-06-23 05:54] LABS: PHOSPHORUS 3.9 mg/dL (2.5-4.9)
[2024-06-23 06:25] LABS: HEMATOCRIT. 25.3 % (42.0-52.0); HEMOGLOBIN. 8.2 g/dL (14.0-18.0); MEAN CORPUSCULAR HGB CONC 32.3 g/dL (31.0-37.0); MEAN CORPUSCULAR VOLUME 89.7 fL (80.0-94.0); MEAN PLATELET VOLUME 9.1 fl (7.4-10.4); PLATELET 240 x1000/uL (130-400); RED BLOOD CELL COUNT 2.82 mill/uL (4.7-6.1); RED CELL DISTRIBUTION WIDTH 15.2 % (11.6-14.6); WHITE BLOOD COUNT 15.6 x1000/uL (4.5-11.0)
[2024-06-23 07:58] LABS: DIFFERENTIAL COMMENT 1
[2024-06-23 10:54] LABS: BG BASE EXCESS 2.3 mmol/L (-2.0-3.0); BG CARBOXYHEMOGLOBIN 0.9 % (0.5-1.5); BG DEOXYHEMOGLOBIN 0.7 % (0.0-5.0); BG FRACTION INSPIRED OXYGEN 40; BG HCO3 ACT 26.9 mmol/L (21.0-28.0); BG METHEMOGLOBIN 0.1 % (0.5-1.5); BG OXYGEN SATURATION 99.3 % (94.0-98.0); BG OXYHEMOGLOBIN 98.3 % (94.0-98.0); BG PH 7.425 (7.350-7.450); BG PO2 173.1 mmHg (83.0-108.0); BG SAMPLE SITE RIGHT RADIAL; BG TOTAL HEMOGLOBIN 8.8 g/dL (13.5-17.5); BG VENT MODE VENT - SIMV
[2024-06-23] MEDS: HYDROCODONE/ACETAMINOPHEN 5/325MG TABLET PO PRN (12:46)
[2024-06-23 21:01] LABS: PLATELET ESTIMATE NORMAL
[2024-06-24] VITALS (102 sets, daily range): BP systolic 105–143; BP diastolic 64–96; PULSE 79–111; RESP 9–23; TEMP 32.2248–37.00296; O2SAT 91–100
[2024-06-24 06:36] LABS: POTASSIUM 3.8 mEq/L (3.5-5.1)
[2024-06-24 06:37] LABS: CALCIUM 8.7 mg/dL (8.7-10.4)
[2024-06-24 06:47] LABS: HEMATOCRIT. 23.3 % (42.0-52.0); HEMOGLOBIN. 7.6 g/dL (14.0-18.0); MEAN CORPUSCULAR HEMOGLOBIN 29.6 pg (28.0-32.0); MEAN CORPUSCULAR HGB CONC 32.6 g/dL (31.0-37.0); MEAN CORPUSCULAR VOLUME 90.7 fL (80.0-94.0); MEAN PLATELET VOLUME 9.4 fl (7.4-10.4); PLATELET 209 x1000/uL (130-400); RED BLOOD CELL COUNT 2.57 mill/uL (4.7-6.1); RED CELL DISTRIBUTION WIDTH 14.9 % (11.6-14.6)
[2024-06-24 07:05] LABS: DIFFERENTIAL COMMENT 1
[2024-06-24] MEDS: FUROSEMIDE 40MG/4ML VIAL IVP NR (07:37)
[2024-06-24] MEDS: POTASSIUM CHLORIDE 20MEQ/PACKET PO NR (07:37)
[2024-06-24 10:52] LABS: ANISOCYTOSIS 1+; HYPOCHROMASIA 1+; PLATELET ESTIMATE NORMAL
[2024-06-25] VITALS (92 sets, daily range): BP systolic 99–150; BP diastolic 54–95; PULSE 73–110; RESP 9–21; TEMP 36.61404–38.22528; O2SAT 94–100
[2024-06-25 05:16] LABS: HEMATOCRIT. 26.1 % (42.0-52.0); HEMOGLOBIN. 8.1 g/dL (14.0-18.0); MEAN CORPUSCULAR HEMOGLOBIN 29.3 pg (28.0-32.0); MEAN CORPUSCULAR HGB CONC 31.3 g/dL (31.0-37.0); MEAN CORPUSCULAR VOLUME 93.9 fL (80.0-94.0); MEAN PLATELET VOLUME 9.5 fl (7.4-10.4); PLATELET 190 x1000/uL (130-400); RED BLOOD CELL COUNT 2.78 mill/uL (4.7-6.1); RED CELL DISTRIBUTION WIDTH 15.7 % (11.6-14.6); WHITE BLOOD COUNT 15.3 x1000/uL (4.5-11.0)
[2024-06-25 05:23] LABS: CARBON DIOXIDE 29 mEq/L (21-32); CHLORIDE 113 mEq/L (98-107); POTASSIUM 3.8 mEq/L (3.5-5.1); SODIUM 150 mEq/L (136-145)
[2024-06-25 05:24] LABS: CALCIUM 8.8 mg/dL (8.7-10.4)
[2024-06-25 05:28] LABS: DIFFERENTIAL COMMENT 1
[2024-06-25 05:29] LABS: CREATININE 2.7 mg/dL (0.6-1.3); GLUCOSE 127 mg/dL (70-105); UREA NITROGEN BLOOD 57 mg/dL (9-23)
[2024-06-25 05:31] LABS: PHOSPHORUS 3.2 mg/dL (2.5-4.9)
[2024-06-25 19:15] LABS: ANISOCYTOSIS 1+; PLATELET ESTIMATE NORMAL
[2024-06-26] VITALS (40 sets, daily range): BP systolic 101–179; BP diastolic 59–116; PULSE 82–114; RESP 10–16; TEMP 36.55848–37.61412; O2SAT 94–100
[2024-06-26 07:29] LABS: HEMATOCRIT. 22.9 % (42.0-52.0); HEMOGLOBIN. 7.3 g/dL (14.0-18.0); MEAN CORPUSCULAR HEMOGLOBIN 29.3 pg (28.0-32.0); MEAN CORPUSCULAR HGB CONC 31.9 g/dL (31.0-37.0); MEAN CORPUSCULAR VOLUME 91.8 fL (80.0-94.0); MEAN PLATELET VOLUME 9.5 fl (7.4-10.4); PLATELET 179 x1000/uL (130-400); RED CELL DISTRIBUTION WIDTH 15.1 % (11.6-14.6)
[2024-06-26 07:33] LABS: POTASSIUM 3.7 mEq/L (3.5-5.1)
[2024-06-26 07:34] LABS: CALCIUM 8.5 mg/dL (8.7-10.4)
[2024-06-26 07:38] LABS: DIFFERENTIAL COMMENT 1
[2024-06-26 07:39] LABS: CREATININE 2.4 mg/dL (0.6-1.3)
[2024-06-26] MEDS: DEXT 5%/0.45% NACL 1000ML 1,000 ML IV ONE (09:26)
[2024-06-26 10:09] LABS: BG BASE EXCESS 3.7 mmol/L (-2.0-3.0); BG CARBOXYHEMOGLOBIN 0.3 % (0.5-1.5); BG FRACTION INSPIRED OXYGEN 30; BG HCO3 ACT 28.3 mmol/L (21.0-28.0); BG METHEMOGLOBIN 0.2 % (0.5-1.5); BG OXYHEMOGLOBIN 98.5 % (94.0-98.0); BG PCO2 42.9 mmHg (35.0-48.0); BG PH 7.437 (7.350-7.450); BG PO2 147.1 mmHg (83.0-108.0); BG SAMPLE SITE RIGHT RADIAL; BG TOTAL HEMOGLOBIN 7.9 g/dL (13.5-17.5); BG VENT MODE VENT - SIMV
[2024-06-26] MEDS: DEXTROSE 5% WATER 1,000 ML IV SCH (11:58)
[2024-06-26] MEDS ORDERED: FENTANYL CITRATE/PF 50MCG/ML 2ML VIAL ONE (15:52)
[2024-06-26] MEDS ORDERED: ROCURONIUM BROMIDE 10MG/ML VIAL 5ML IV ONE (15:53)
[2024-06-26] MEDS ORDERED: PROPOFOL 200MG/20ML VIAL IV ONE (16:10)
[2024-06-26 23:43] LABS: PLATELET ESTIMATE NORMAL
[2024-06-27] VITALS (53 sets, daily range): BP systolic 91–142; BP diastolic 61–94; PULSE 78–115; RESP 9–24; TEMP 36.89184–37.33632; O2SAT 97–100
[2024-06-27 06:13] LABS: POTASSIUM 3.4 mEq/L (3.5-5.1)
[2024-06-27 06:14] LABS: CALCIUM 8.3 mg/dL (8.7-10.4)
[2024-06-27] MEDS: POTASSIUM CHLORIDE 20MEQ/PACKET NG NR (09:16)
[2024-06-27] MEDS: IPRATROPIUM/ALBUTEROL 0.5-3(2.5)MG/3ML NEB HHN SCH (20:33)
[2024-06-28] VITALS (20 sets, daily range): BP systolic 102–133; BP diastolic 64–89; PULSE 93–109; RESP 10–22; TEMP 36.50292–37.55856; O2SAT 97–100
[2024-06-28 06:54] LABS: CALCIUM 7.7 mg/dL (8.7-10.4); POTASSIUM 3.4 mEq/L (3.5-5.1)
[2024-06-28 06:58] LABS: CREATININE 1.7 mg/dL (0.6-1.3)
[2024-06-28 07:11] LABS: HEMATOCRIT. 23.1 % (42.0-52.0); HEMOGLOBIN. 7.5 g/dL (14.0-18.0); MEAN CORPUSCULAR HEMOGLOBIN 30.1 pg (28.0-32.0); MEAN CORPUSCULAR HGB CONC 32.5 g/dL (31.0-37.0); MEAN CORPUSCULAR VOLUME 92.7 fL (80.0-94.0); MEAN PLATELET VOLUME 9.7 fl (7.4-10.4); PLATELET 150 x1000/uL (130-400); RED BLOOD CELL COUNT 2.49 mill/uL (4.7-6.1); RED CELL DISTRIBUTION WIDTH 14.7 % (11.6-14.6); WHITE BLOOD COUNT 10.6 x1000/uL (4.5-11.0)
[2024-06-28 07:23] LABS: DIFFERENTIAL COMMENT 1
[2024-06-28] MEDS: POTASSIUM CHLORIDE 20MEQ/PACKET PO NR (08:37)
[2024-06-28] MEDS: ENOXAPARIN 40MG/0.4ML SYR SUBCUT SCH (08:52)
[2024-06-28 13:57] LABS: PLATELET ESTIMATE NORMAL
[2024-06-29] VITALS (19 sets, daily range): BP systolic 112–126; BP diastolic 71–86; PULSE 87–108; RESP 10–16; TEMP 37.00296–37.61412; O2SAT 95–100
[2024-06-29 06:02] LABS: HEMATOCRIT. 22.3 % (42.0-52.0); HEMOGLOBIN. 7.5 g/dL (14.0-18.0); MEAN CORPUSCULAR HGB CONC 33.5 g/dL (31.0-37.0); MEAN CORPUSCULAR VOLUME 89.4 fL (80.0-94.0); MEAN PLATELET VOLUME 9.3 fl (7.4-10.4); PLATELET 151 x1000/uL (130-400); RED CELL DISTRIBUTION WIDTH 14.6 % (11.6-14.6); WHITE BLOOD COUNT 9.3 x1000/uL (4.5-11.0)
[2024-06-29 06:05] LABS: INR 1.1; PROTHROMBIN TIME 11.9 sec (9.6-11.0)
[2024-06-29 06:07] LABS: POTASSIUM 3.2 mEq/L (3.5-5.1)
[2024-06-29 06:09] LABS: CALCIUM 7.9 mg/dL (8.7-10.4)
[2024-06-29 06:14] LABS: CREATININE 1.5 mg/dL (0.6-1.3)
[2024-06-29 07:30] LABS: DIFFERENTIAL COMMENT 1
[2024-06-29] MEDS: POTASSIUM CHLORIDE 20MEQ/PACKET PO NR (11:08)
[2024-06-29 13:49] LABS: ANISOCYTOSIS 1+; NUCLEATED RED BLOOD CELLS 1 /100 WBC; PLATELET ESTIMATE NORMAL
[2024-06-30] VITALS (22 sets, daily range): BP systolic 108–127; BP diastolic 69–82; PULSE 10–111; RESP 12–24; TEMP 36.8–37.9; O2SAT 91–100
[2024-06-30 10:55] LABS: BG BASE EXCESS 3.9 mmol/L (-2.0-3.0); BG CARBOXYHEMOGLOBIN 0.1 % (0.5-1.5); BG DEOXYHEMOGLOBIN 1.8 % (0.0-5.0); BG FRACTION INSPIRED OXYGEN 30; BG HCO3 ACT 27.8 mmol/L (21.0-28.0); BG METHEMOGLOBIN 0.3 % (0.5-1.5); BG OXYGEN SATURATION 98.2 % (94.0-98.0); BG OXYHEMOGLOBIN 97.8 % (94.0-98.0); BG PCO2 39.4 mmHg (35.0-48.0); BG PH 7.467 (7.350-7.450); BG PO2 103.3 mmHg (83.0-108.0); BG SAMPLE SITE RIGHT RADIAL; BG TOTAL HEMOGLOBIN 9.4 g/dL (13.5-17.5); BG VENT MODE VENT - SIMV
[2024-07-01] VITALS (17 sets, daily range): BP systolic 99–119; BP diastolic 66–81; PULSE 96–110; RESP 13–23; TEMP 36.9–38; O2SAT 98–100
[2024-07-01] MEDS ORDERED: NALOXONE HCL 0.4MG/ML VIAL IV PRN (11:15)
[2024-07-01] MEDS: HYDROCODONE/ACETAMINOPHEN 5/325MG TABLET PO PRN (11:29)
== END 2024-07-01 20:46 | disposition short-term general hospital (02) | DRG 5 ==
LOC: EDBD 15:06 → ER 15:06 → EDBEDREQTM 20:17 → EDBEDREQ 20:17 → MICUSO 06-04 04:28 → 5EST 06-27 22:33
PROVIDERS: ADMIT Internal Medicine; ATTEND Internal Medicine
PROC: 0BH17EZ Insertion of Endotracheal Airway into Trachea, Via Natural or Artificial Opening (ICD-10-PCS; principal; 2024-06-02)
PROC: 5A1955Z Respiratory Ventilation, Greater than 96 Consecutive Hours (ICD-10-PCS; 2024-06-02)
PROC: 5A1D70Z Performance of Urinary Filtration, Intermittent, Less than 6 Hours Per Day (ICD-10-PCS; 2024-06-07)
PROC: 30233N1 Transfusion of Nonautologous Red Blood Cells into Peripheral Vein, Percutaneous Approach (ICD-10-PCS; 2024-06-07)
PROC: 02HV33Z Insertion of Infusion Device into Superior Vena Cava, Percutaneous Approach (ICD-10-PCS; 2024-06-07)
PROC: B548ZZA Ultrasonography of Superior Vena Cava, Guidance (ICD-10-PCS; 2024-06-07)
PROC: 5A1D70Z Performance of Urinary Filtration, Intermittent, Less than 6 Hours Per Day (ICD-10-PCS; 2024-06-09)
PROC: 02HV33Z Insertion of Infusion Device into Superior Vena Cava, Percutaneous Approach (ICD-10-PCS; 2024-06-10)
PROC: B548ZZA Ultrasonography of Superior Vena Cava, Guidance (ICD-10-PCS; 2024-06-10)
PROC: 5A1D70Z Performance of Urinary Filtration, Intermittent, Less than 6 Hours Per Day (ICD-10-PCS; 2024-06-11)
PROC: 5A1D70Z Performance of Urinary Filtration, Intermittent, Less than 6 Hours Per Day (ICD-10-PCS; 2024-06-13)
PROC: 5A1D70Z Performance of Urinary Filtration, Intermittent, Less than 6 Hours Per Day (ICD-10-PCS; 2024-06-15)
PROC: 5A1D70Z Performance of Urinary Filtration, Intermittent, Less than 6 Hours Per Day (ICD-10-PCS; 2024-06-17)
PROC: 5A1D70Z Performance of Urinary Filtration, Intermittent, Less than 6 Hours Per Day (ICD-10-PCS; 2024-06-20)
PROC: 0B110F4 Bypass Trachea to Cutaneous with Tracheostomy Device, Open Approach (ICD-10-PCS; 2024-06-26)
PROC: 0BJ08ZZ Inspection of Tracheobronchial Tree, Via Natural or Artificial Opening Endoscopic (ICD-10-PCS; 2024-06-26)
DX: A41.9 Sepsis, unspecified organism (principal); N17.0 Acute kidney failure with tubular necrosis; R65.21 Severe sepsis with septic shock; G92.8 Other toxic encephalopathy; E11.10 Type 2 diabetes mellitus with ketoacidosis without coma; I50.33 Acute on chronic diastolic (congestive) heart failure; I82.412 Acute embolism and thrombosis of left femoral vein; J18.9 Pneumonia, unspecified organism; D69.6 Thrombocytopenia, unspecified; J96.01 Acute respiratory failure with hypoxia; D53.9 Nutritional anemia, unspecified; E11.22 Type 2 diabetes mellitus with diabetic chronic kidney disease; E86.9 Volume depletion, unspecified; E83.39 Other disorders of phosphorus metabolism; F41.1 Generalized anxiety disorder; I13.2 Hypertensive heart and chronic kidney disease with heart failure and with stage 5 chronic kidney disease, or end stage renal disease; N18.6 End stage renal disease; Z59.00 Homelessness unspecified; E87.0 Hyperosmolality and hypernatremia; R16.0 Hepatomegaly, not elsewhere classified; J01.10 Acute frontal sinusitis, unspecified; E87.6 Hypokalemia; E83.51 Hypocalcemia; E88.09 Other disorders of plasma-protein metabolism, not elsewhere classified; E87.5 Hyperkalemia; S90.822A Blister (nonthermal), left foot, initial encounter; Y92.238 Other place in hospital as the place of occurrence of the external cause; L97.829 Non-pressure chronic ulcer of other part of left lower leg with unspecified severity; L97.819 Non-pressure chronic ulcer of other part of right lower leg with unspecified severity; E11.51 Type 2 diabetes mellitus with diabetic peripheral angiopathy without gangrene; X58.XXXA Exposure to other specified factors, initial encounter; E86.1 Hypovolemia; F14.10 Cocaine abuse, uncomplicated; Z86.718 Personal history of other venous thrombosis and embolism; Y99.8 Other external cause status; Z74.01 Bed confinement status; Y93.89 Activity, other specified; Z89.511 Acquired absence of right leg below knee; Z89.512 Acquired absence of left leg below knee
CPT/HCPCS: 31500; 36415; 36556; 36573; 36600; 71045; 71250; 74176; 76700; 76770; 76937; 78580; 80048; 80051; 80053; 80076; 80202; 80305; 80320; 81003; 82010; 82270; 82375; 82550; 82575; 82607; 82728; 82746; 82805; 82962; 83036; 83540; 83550; 83735; 83930; 84100; 84145; 84478; 84484; 85014; 85018; 85025; 85027; 85044; 86705; 86709; 86850; 86900; 86920; 87070; 87340; 90935; 93005; 93923; 93970; 94002; 94003; 94070; 94640; 94664; 94667; 97161; 98960; A4606; A4663; A6261; C1725; C1752; J0360; J1650; J1815; J1940; J2003; J2248; J2250; J2470; J2543; J2704; J2920; J3010; J3370; J3475; J3480; J3490; J7030; J7040; J7050; J7060; J7070; J7121; J7512; J7608; P9016; G0480